=== PATIENT | male | born 1995 | race Asian ===

== ENCOUNTER 2017-10-23 09:18 | Day surgery (SDC) | payer OTHER ==
[~2017-10-23 09:18] MED LIST: CEFAZOLIN 2 GM/50 ML (PMX) 50 ML IVPB; SOD CHLORIDE 0.9% 1,000 ML IV
[2017-10-23 09:54] LABS: ADD MAN DIFF? NO
[2017-10-23 10:01] LABS: BASOPHILS % 0.9 % (0.0-2.0); EOSINOPHILS # 0.1 10^3/ul (0.0-0.5); HEMATOCRIT 44.3 % (42.0-52.0); HEMOGLOBIN 14.6 g/dl (14.0-18.0); LYMPHOCYTES # 1.9 10^3/ul (0.8-2.9); LYMPHOCYTES % 40.9 % (15.0-51.0); MEAN CORPUSCULAR HEMOGLOBIN 29.4 pg (29.0-33.0); MEAN CORPUSCULAR VOLUME 89.1 fl (82.0-101.0); MONOCYTE # 0.3 10^3/ul (0.3-0.9); MONOCYTES % 6.8 % (0.0-11.0); NEUTROPHIL # 2.2 10^3/ul (1.6-7.5); NEUTROPHILS % 49.2 % (39.0-77.0); PLATELET COUNT 253 10^3/UL (140-415); RED BLOOD COUNT 4.97 10^6/ul (4.70-6.10); RED CELL DISTRIBUTION WIDTH 12.6 % (11.5-14.5)
[2017-10-23 10:01] LABS: WHITE BLOOD COUNT 4.6 10^3/ul (4.8-10.8)
[2017-10-23 10:17] LABS: ALANINE AMINOTRANSFERASE 26 IU/L (13-69); ALBUMIN 4.6 g/dl (3.3-4.9); ALBUMIN/GLOBULIN RATIO 1.48; ALKALINE PHOSPHATASE 86 IU/L (42-121); ANION GAP 12 (8-16); ASPARTATE AMINO TRANSFERASE 30 IU/L (15-46); BILIRUBIN,INDIRECT 2.6 mg/dl (0-1.1); BILIRUBIN,TOTAL 2.6 mg/dl (0.2-1.3); CARBON DIOXIDE 28 mmol/L (21-31); CHLORIDE 107 mmol/L (97-110); GLUCOSE 92 mg/dl (70-220); TOTAL PROTEIN 7.7 g/dl (6.1-8.1)
[2017-10-23 10:25] LABS: BLOOD UREA NITROGEN 13 mg/dl (7-20); CALCIUM 9.3 mg/dl (8.4-10.2); CREATININE 0.94 mg/dl (0.61-1.24); SODIUM 143 mmol/L (135-144)
[2017-10-23 10:41] LABS: INR 0.95; PROTIME 12.8 Sec (11.9-14.9)
[2017-10-23 10:42] LABS: PARTIAL THROMBOPLASTIN TIME 32.7 Sec (25.0-35.0)
[2017-10-23] MEDS ORDERED: PROPOFOL 100 ML (10:53)
[2017-10-23] MEDS ORDERED: ROCURONIUM 50 MG INJ (10:53)
[2017-10-23] MEDS ORDERED: LIDOCAINE 2% (SDV) 5 ML INJ (10:53)
[2017-10-23] MEDS ORDERED: FENTAnyl 50 MCG/ML VIAL (10:53)
[2017-10-23] MEDS ORDERED: MIDAZOLAM 1 MG/ML 2 ML INJ (10:53)
[2017-10-23] MEDS ORDERED: DEXAMETHASONE 4 MG/ML 1 ML INJ (11:38)
[2017-10-23] MEDS ORDERED: SUGAMMADEX SODIUM 200 MG/2 ML VIAL IV (11:38)
[2017-10-23] MEDS ORDERED: ONDANSETRON 4 MG INJ (11:38)
[2017-10-23] MEDS ORDERED: ACETAMINOPHEN 1000MG/100ML IV 100 ML (11:38)
[2017-10-23] MEDS: LIDOCAINE 1% (MPF) 30 ML INJ (11:40)
[2017-10-23] MEDS ORDERED: GLYCOPYRROLATE 0.4 MG INJ (11:46)
[2017-10-23] MEDS ORDERED: CEFAZOLIN 1 GM INJ (12:38)
== END 2017-10-23 14:48 | disposition home or self-care (01) ==
LOC: SDS 09:18
DX: K60.3 Anal fistula (principal)
CPT/HCPCS: 46270; 80053; 85025; 85610; 85730